=== PATIENT | female | born 1985 | race Caucasian/White ===

== ENCOUNTER 2016-05-24 09:40 | Emergency (ER) | payer OTHER ==
[2016-05-24 09:59] VITALS: TEMP 98; BMI 26.6
--- NOTE | 2016-05-24 10:32 | PDOC ---
History of Present Illness - General History Source: Patient Exam Limitations: No Limitations - History of Present Illness Initial Comments: 05/24/16 10:39 The patient is a 30 year old approximately 5 weeks female (), with a significant past medical history of asthma, who presents to the emergency department complaining of epigastric pain for approximately 5 days. The patient reports nausea and a bloody emetic episode earlier today. She reports everything she eats causes mild discomfort and associated heartburn. The patient denies any vaginal bleeding, cramping, dysuria, hematuria, frequency, or urgency. The patient reports morning sickness associated with her previous , but states todays symptoms are different. The patient states she has not seen her PRESCHOOL EDUCATION DIRECTOR for her current , but reports she has an appointment scheduled. The patient denies any diarrhea or constipation. The patient denies any fever, chills, cough, headache, or dizziness. The patient denies any chest pain, shortness of breath, palpitations, or diaphoresis. The patient denies any sick contacts or recent travel. Allergies: Penicillins(facial swelling) Past Surgical History: None reported. Social History: Non-smoker. Denies alcohol or drug use. <Eve Blackburn - Last Filed: 05/24/16 14:12> <Ariana Baeza - Last Filed: 05/25/16 08:44> - General Chief Complaint: Nausea/Vomiting Stated Complaint: 5 WKS , ABD PAIN, VOMITING Time Seen by Provider: 05/24/16 09:54 Past History <Eve Blackburn - Last Filed: 05/24/16 14:12> - Past Medical History Asthma: Yes Cancer: No Cardiac Disorders: No Diabetes: No HTN: No Seizures: No Thyroid Disease: No - Reproductive History Is Patient Now?: Yes (#): 2 Para: 1 Therapeutic (s) & number: No - Psycho/Social/Smoking Cessation Hx Suicidal Ideation: No Smoking History: Never smoked Have you smoked in the past 12 months: No Hx Alcohol Use: No Drug/Substance Use Hx: No Hx Substance Use Treatment: No <Ariana Baeza - Last Filed: 05/25/16 08:44> - Past Medical History Allergies/Adverse Reactions: Allergies Allergy/AdvReac Type Severity Reaction Status Date / Time Penicillins Allergy Severe Swelling Verified 05/24/16 09:59 Home Medications: Ambulatory Orders Vits #93/Iron Fum/FA [ Formula Tablet] 1 each PO DAILY Review of Systems - Review of Systems Able to Perform ROS?: Yes Comments:: 05/24/16 10:40 GENERAL/CONSTITUTIONAL: No fever or chills. No weakness. HEAD, EYES, EARS, NOSE AND THROAT: No change in vision. No ear pain or discharge. No sore throat. CARDIOVASCULAR: No chest pain or shortness of breath. RESPIRATORY: No cough, wheezing, or hemoptysis. GASTROINTESTINAL: +Epigastric pain, +nausea, +vomiting, +heart burn. No diarrhea or constipation. GENITOURINARY: No dysuria, frequency, or change in urination. MUSCULOSKELETAL: No joint or muscle swelling or pain. No neck or back pain. SKIN: No rash NEUROLOGIC: No headache, vertigo, loss of consciousness, or change in strength/ sensation. ENDOCRINE: No increased thirst. No abnormal weight change. HEMATOLOGIC/LYMPHATIC: No anemia, easy bleeding, or history of blood clots. ALLERGIC/IMMUNOLOGIC: No hives or skin allergy. <Eve Blackburn - Last Filed: 05/24/16 14:12> *Physical Exam - Vital Signs Last Vital Signs Temp Pulse Resp BP Pulse Ox 98.0 F 74 18 108/61 100 05/24/16 09:54 05/24/16 09:54 05/24/16 09:54 05/24/16 09:54 05/24/16 09:54 - Physical Exam Comments: 05/24/16 10:42 GENERAL: Awake, alert, and fully oriented, in no acute distress HEAD: No signs of trauma EYES: PERRLA, EOMI, sclera anicteric, conjunctiva clear ENT: Auricles normal inspection, hearing grossly normal, nares patent, oropharynx clear without exudates. Dry mucosa NECK: Normal ROM, supple, no lymphadenopathy, JVD, or masses LUNGS: Breath sounds equal, clear to auscultation bilaterally. No wheezes, and no crackles HEART: Regular rate and rhythm, normal S1 and S2, no murmurs, rubs or gallops ABDOMEN: Mild epigastric tenderness to palpation. Soft, normoactive bowel sounds. No guarding, no rebound. No masses EXTREMITIES: Normal range of motion, no edema. No clubbing or cyanosis. No cords, erythema, or tenderness NEUROLOGICAL: Cranial nerves II through XII grossly intact. Normal speech, normal gait SKIN: Warm, Dry, normal turgor, no rashes or lesions noted. <Eve Blackburn - Last Filed: 05/24/16 14:12> - Vital Signs Last Vital Signs Temp Pulse Resp BP Pulse Ox 98.0 F 74 18 108/61 100 05/24/16 09:54 05/24/16 09:54 05/24/16 09:54 05/24/16 09:54 05/24/16 09:54 <Ariana Baeza - Last Filed: 05/25/16 08:44> ED Treatment Course - LABORATORY CBC & Chemistry Diagram: 05/24/16 10:34 05/24/16 10:49 - RADIOLOGY Radiograph Interpretation: 05/24/16 14:11 EXAM: Pelvic US INTERPRETED BY: Dr. Perry REVIEWED BY: Dr. Baeza IMPRESSION: Single, live intrauterine of 5 weeks 5 days gestational age. <Eve Blackburn - Last Filed: 05/24/16 14:12> - LABORATORY CBC & Chemistry Diagram: 05/24/16 10:34 05/24/16 10:49 <Ariana Baeza - Last Filed: 05/25/16 08:44> Medical Decision Making - Medical Decision Making Initially was expecting very early which might not have shown up on ultrasound, however, when the B-HCG was ~30,000, ultrasound was obtained. +IUP. Patient feeling better with IV hydration and antiemetics. Stable for DC home. 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 I gave her a copy of the ultrasound reading and her bloodwork. <Ariana Baeza - Last Filed: 05/25/16 08:44> *DC/Admit/Observation/Transfer - Attestations Scribe Attestion: 05/24/16 10:42 Documentation prepared by Eve Blackburn, acting as special forces medical sergeant for Ariana Baeza MD. <Eve Blackburn - Last Filed: 05/24/16 14:12> - Discharge Dispostion Admit: No <Ariana Baeza - Last Filed: 05/25/16 08:44> Diagnosis at time of Disposition: Abdominal pain affecting - Discharge Dispostion Disposition: HOME Condition at time of disposition: Improved - Patient Instructions Printed Discharge Instructions: DI for -- Discomforts and Remedies, DI for Abdominal Pain -- Early
[2016-05-24] MEDS ORDERED: LACTATED RINGERS SOLUTION 1,000 ML IV STA (10:33)
[2016-05-24] MEDS ORDERED: ONDANSETRON 4 MG/2 ML VIAL IVPUSH ONE (10:33)
[2016-05-24] MEDS ORDERED: ONDANSETRON 4 MG/2 ML VIAL ONE (10:55)
[2016-05-24 11:00] LABS: BASOPHIL 0.6 % (0-2.0); EOSINOPHIL 0.6 % (0-4.5); MCH 29.3 pg (25.7-33.7); MCHC 33.6 g/dl (32.0-36.0); MEAN CELL VOLUME 87.3 fl (80-96); MEAN PLT VOLUME 8.9 fl (7.5-11.1); NEUTROPHILS 80.3 % (42.8-82.8); PLATELET COUNT 208 K/MM3 (134-434); RDW 12.6 % (11.6-15.6); WHITE BLOOD COUNT 8.4 K/mm3 (4.0-10.0)
[2016-05-24 11:03] LABS: URINE APPEARANCE CLEAR; URINE BILIRUBIN NEGATIVE (NEGATIVE); URINE BLOOD NEGATIVE (NEGATIVE); URINE COLOR COLORLESS; URINE GLUCOSE (UA) NEGATIVE (NEGATIVE); URINE KETONE NEGATIVE (NEGATIVE); URINE LEUK ESTERASE NEGATIVE (NEGATIVE); URINE NITRITE NEGATIVE (NEGATIVE); URINE PROTEIN NEGATIVE (NEGATIVE); URINE UROBILINOGEN NEGATIVE E.U./dl (0.2-1.0)
[2016-05-24 11:33] LABS: ALBUMIN 3.7 g/dl (3.4-5.0); ALK PHOS 47 U/L (45-117); ANION GAP 7 (8-16); BILIRUBIN,TOTAL 0.6 mg/dL (0.2-1.0); CALCIUM 9.1 mg/dL (8.5-10.1); CO2 27 mmol/L (21-32); CREATININE 0.6 mg/dL (0.55-1.02); GLUCOSE,RANDOM 101 mg/dL (74-106); SGOT/AST 11 U/L (15-37); SGPT/ALT 15 U/L (12-78); TOT PROT 6.6 g/dl (6.4-8.2)
[2016-05-24 14:14] VITALS: BP 110/62; PULSE 70
== END 2016-05-24 14:15 | disposition home or self-care (01) ==
LOC: JER 09:40
PROC: 3E0337Z Introduction of Electrolytic and Water Balance Substance into Peripheral Vein, Percutaneous Approach (ICD-10-PCS; principal; 2016-05-24)
PROC: 3E033GC Introduction of Other Therapeutic Substance into Peripheral Vein, Percutaneous Approach (ICD-10-PCS; 2016-05-24)
DX: O26.891 Other specified pregnancy related conditions, first trimester (principal); R10.13 Epigastric pain; Z3A.01 Less than 8 weeks gestation of pregnancy
CPT/HCPCS: 36415; 76801-TC; 80053; 81003; 83690; 84702; 85025; 99283-25

== ENCOUNTER 2017-01-14 14:00 | Inpatient (IN) | payer BC, OTHER ==
[2017-01-14 17:26] VITALS: BMI 35.2
[2017-01-14] MEDS ORDERED: DEXTROSE 5%-LACTATED RINGERS 1,000 ML IV SCH (18:00)
[2017-01-14 19:10] LABS: EOSINOPHIL 0.5 % (0-4.5); MCH 25.9 pg (25.7-33.7); MCHC 33.1 g/dl (32.0-36.0); MEAN CELL VOLUME 78.2 fl (80-96); MEAN PLT VOLUME 8.9 fl (7.5-11.1); NEUTROPHILS 84.5 % (42.8-82.8); PLATELET COUNT 223 K/MM3 (134-434); RDW 16.6 % (11.6-15.6)
[2017-01-14 19:24] LABS: INR 0.95 (0.82-1.09); PROTHROMBIN TIME (PATIENT) 10.7 SEC (9.98-11.88)
[2017-01-14 19:27] LABS: ACTIVATED PTT 26.1 SECONDS (26.9-34.4)
[2017-01-14 19:33] LABS: ANION GAP 10 (8-16); CALCIUM 8.7 mg/dL (8.5-10.1); CO2 23 mmol/L (21-32); CREATININE 0.6 mg/dL (0.55-1.02); GLUCOSE,RANDOM 128 mg/dL (74-106)
[2017-01-14 20:34] LABS: HIV 1 & 2 AB NEGATIVE; HIV 1 AGp24 NEGATIVE
--- NOTE | 2017-01-14 21:16 | HP ---
Past Medical History - Primary Care Physician PCP:: Rosemary Hays - Admission Chief Complaint: Active Labor History of Present Illness: 31 EDC 01/07/17 EGA 41 weeks admitted in active labor no Rom No bleeding History Source: Patient - Past Medical History Pulmonary: Yes: Asthma ...: 2 ...Para: 1 ...Term: 1 ...LMP: 04/14/16 ... Weeks Gestation by Dates: 39.2 ...EDC by Dates: 01/19/17 ...EDC by Sono: 01/07/17 - Past Surgical History Hx Myomectomy: No Hx Transabdominal Cerclage: No - Smoking History Smoking history: Never smoked Have you smoked in the past 12 months: No - Alcohol/Substance Use Hx Alcohol Use: No History of Substance Use: reports: None - Social History Usual Living Arrangement: Yes: With Spouse History of Recent Travel: No Home Medications - Allergies Allergies/Adverse Reactions: Allergies Allergy/AdvReac Type Severity Reaction Status Date / Time Penicillins Allergy Severe Swelling Verified 01/14/17 14:47 - Home Medications Home Medications: Ambulatory Orders Vits #93/Iron Fum/FA [ Formula Tablet] 1 each PO DAILY Review of Systems - Review of Systems Constitutional: reports: No Symptoms Eyes: reports: No Symptoms HENT: reports: No Symptoms Neck: reports: No Symptoms Cardiovascular: reports: No Symptoms Respiratory: reports: No Symptoms Gastrointestinal: reports: No Symptoms Genitourinary: reports: No Symptoms Breasts: reports: No Symptoms Reported Musculoskeletal: reports: No Symptoms Integumentary: reports: No Symptoms Neurological: reports: No Symptoms Endocrine: reports: No Symptoms Hematology/Lymphatic: reports: No Symptoms Psychiatric: reports: No Symptoms Physical Exam - Maternity Vital Signs: Vital Signs Temperature 97.8 F 01/14/17 18:00 Pulse Rate 83 01/14/17 20:00 Respiratory Rate 20 01/14/17 20:00 Blood Pressure 104/58 01/14/17 20:00 O2 Sat by Pulse Oximetry (%) Constitutional: Yes: Well Nourished, No Distress HENT: Yes: WNL Neck: Yes: WNL Cardiovascular: Yes: WNL, Regular Rate and Rhythm Lungs: Clear to auscultation Breast(s): Yes: WNL - Abdominal Exam/OB Fundal Height: 41 Number of Fetuses: Single Presentation: Vertex Contractions: Yes Regularity: Regular Intensity: Mild/Mod Monitor Mode: External Heart Rate (range): 145 Heart Rate Location: [facility] Category: I Accelerations: Non-Uniform Decelerations: None - Vaginal Exam/OB Dilatation (cm): 5 Effacement (%): 100 Amniotic Membrane Status: Intact Nitrazine Test: Negative Amniotic Fluid: Yes: Clear Presentation: Vertex/Position - Physical Exam Musculoskeletal: Yes: WNL Extremities: Yes: WNL Edema: No Integumentary: Yes: WNL - Labs Lab Results: CBC, BMP 01/14/17 18:45 01/14/17 18:45 Problem List - Problems (1) Labor established Code(s): DPY7209 - (2) Post-dates Code(s): O48.0 - POST-TERM Assessment/Plan Post dates 41 week labor Cat 1 Plan Stadol Prn pt does not desire pitocin
[2017-01-14] MEDS ORDERED: BUTORPHANOL TARTRATE 1 MG/ML VIAL IVPB ONE (21:56)
[2017-01-14] MEDS ORDERED: ELECTROLYTE-148 SOLN 1,000 ML IV SCH (22:30)
--- NOTE | 2017-01-15 01:21 | PN ---
Ante-Partal Exam - Subjective Subjective: Pt feeling tired Vital Signs: Vital Signs Temperature 98.2 F 01/14/17 22:00 Pulse Rate 82 01/14/17 23:00 Respiratory Rate 20 01/14/17 23:00 Blood Pressure 112/56 01/14/17 23:00 O2 Sat by Pulse Oximetry (%) Bleeding: No Headache: No Visual changes: No Right upper quadrant pain: No - Contractions Contractions: Yes Regularity: Irregular Intensity: Mild/Mod Monitor Mode: External - Exam during Labor Variability: Moderate Category: I Monitor Accelerations: Present Monitor Decelerations: None Exam: Vaginal Dilatation (cm): 6 Effacement (%): 100 Amniotic Membrane Status: Intact Presentation: Vertex Station: -1 - Assessment/Plan Assessment/Plan: Active labor Plan continue present management advised lovely hamiltonn
[2017-01-15] MEDS ORDERED: PROMETHAZINE HCL 25 MG/1 ML VIAL IM ONE (02:29)
--- NOTE | 2017-01-15 07:28 | PN ---
Ante-Partal Exam - Subjective Subjective: Pt with pressure Vital Signs: Vital Signs Temperature 98.3 F 01/15/17 05:00 Pulse Rate 106 H 01/15/17 05:00 Respiratory Rate 18 01/15/17 05:00 Blood Pressure 95/63 01/15/17 05:00 O2 Sat by Pulse Oximetry (%) Bleeding: No Headache: No Visual changes: No Right upper quadrant pain: No - Contractions Contractions: Yes Regularity: Irregular Intensity: Mild/Mod Monitor Mode: External - Exam during Labor Heart Rate: 145 Variability: Moderate Heart Rate Location: [facility] Category: I Monitor Accelerations: Present Monitor Decelerations: None Exam: Vaginal Dilatation (cm): 7 Effacement (%): 100 Amniotic Membrane Status: Intact Presentation: Vertex - Intrapartum Hemorrhage Risk Risk Score: 0 Risk Level: Low Risk - Assessment/Plan Assessment/Plan: Active Labor - slow progress Cat 1 desires no pitocin SP Stadol Plan Continue current management
[2017-01-15] MEDS ORDERED: ACETAMINOPHEN 325 MG TABLET (FP) PO PRN (10:08)
[2017-01-15] MEDS ORDERED: BUTORPHANOL TARTRATE 1 MG/ML VIAL IVPUSH ONE (10:28)
[2017-01-15] MEDS ORDERED: PROMETHAZINE HCL 25 MG/1 ML VIAL IVPUSH ONE (10:29)
--- NOTE | 2017-01-15 10:31 | PN ---
Ante-Partal Exam - Subjective Subjective: Pt c/o pain, desires more IV analgesia. Vital Signs: Vital Signs Temperature 98.0 F 01/15/17 10:00 Pulse Rate 71 01/15/17 10:00 Respiratory Rate 20 01/15/17 10:00 Blood Pressure 111/66 01/15/17 10:00 O2 Sat by Pulse Oximetry (%) Bleeding: No Headache: No Visual changes: No Right upper quadrant pain: No Pain (scale 1-10): 8 - Contractions Contractions: Yes Regularity: Regular Intensity: Mod/Strong Monitor Mode: External - Exam during Labor Heart Rate: 145 Variability: Moderate Category: I Monitor Accelerations: Present Monitor Decelerations: None Exam: Vaginal Dilatation (cm): 7.5 Effacement (%): 100 Amniotic Membrane Status: Ruptured Amniotic Fluid: Clear Station: 0 - Assessment/Plan Assessment/Plan: Artifical ROM for copious clear fluid for another dose of IV stadol/phenergan expectant management anticipate
[2017-01-15] MEDS: OXYTOCIN 20 UNITS in 0.9% NS 1,000 ML IV SCH ×2 (14:00→15:15)
--- NOTE | 2017-01-15 14:14 | PN ---
Delivery - Delivery Vaginal Delivery: No Problems Type of Anesthesia: Local Episiotomy/Laceration: 2nd degree EBL (cc): 300 Delivery, Single - Stages of Labor Date of Delivery: 01/15/17 Time of Delivery: 13:51 Date Placenta Delivered: 01/15/17 Time Placenta Delivered: 14:00 Placenta: Yes: Spontaneous - Condition of Infant Infant Gender: Male Position: Left, OA - 1 Minute Total Score: 9 5 Minutes Total Score: 9 - Feeding Plan Initial Plan: Exclusive throughout hospitalization Remarks - Remarks Remarks: Uncomplicated from LESIA position. Anterior shoulder (right) delivered with ease along with remainder of . cord clamped and cut nose and oropharynx bulb suctioned cord blood collected 2nd degree laceration repaired with 2-0 chromic suture in usual fashion placenta delivered spontaneously and in tact mom stable baby to well baby nursery
[2017-01-15] MEDS ORDERED: WITCH HAZEL 50% (TUCKS) 40 PAD/JAR PAD TP PRN (14:15)
[2017-01-15] MEDS ORDERED: METHYLERGONOVINE MALEATE 0.2 MG/1 ML AMP IM PRN (14:15)
[2017-01-15] MEDS ORDERED: BENZOCAINE 28 GM HEMORRHOIDAL OINTMENT TP PRN (14:15)
[2017-01-15] MEDS ORDERED: BENZOCAINE 20% 57 GM BOTTLE TP PRN (14:15)
[2017-01-15] MEDS ORDERED: BISACODYL 10 MG SUPP.RECT RC PRN (14:15)
[2017-01-15] MEDS ORDERED: TUBERCULIN PPD 5 TU/0.1ML SYRINGE (IN PATIENT USE ONLY) ID ONE (16:30)
[2017-01-15] MEDS: FERROUS SO4 325 MG TABLET (FP) PO SCH (18:05)
[2017-01-15] MEDS: ACETAMINOPHEN 325 MG TABLET (FP) PO PRN (21:25)
[2017-01-15] MEDS: IBUPROFEN 600 MG TABLET (FP) PO PRN (21:25)
--- NOTE | 2017-01-16 07:39 | PN ---
Post Progress Note - Subjective Subjective: Pt seen/examined and feeling well. today. Some perineal soreness otherwise feeling well. Pain controlled, tolerating diet. Ambulating and voiding. Type of Delivery: Vital Signs: Vital Signs Temperature 97.9 F 01/16/17 06:00 Pulse Rate 73 01/16/17 06:00 Respiratory Rate 18 01/16/17 06:00 Blood Pressure 111/63 01/16/17 06:00 O2 Sat by Pulse Oximetry (%) Uterus: Yes: Fundus below umbilicus Abdomen/GI: Yes: Abdomen soft, Passing flatus, Tolerating PO. No: Tender Lochia: Yes: Rubra Lochia, amount: Small Extremities: Yes: Calves non-tender. No: Edema Perineum: Yes: Laceration (2nd degree reparied with 2-0 vicryl) Activity: Ambulating - Labs Labs: CBC WBC 10.0 K/mm3 (4.0-10.0) 01/14/17 18:45 RBC 4.42 M/mm3 (3.60-5.2) 01/14/17 18:45 Hgb 11.4 GM/dL (10.7-15.3) D 01/14/17 18:45 Hct 34.6 % (32.4-45.2) 01/14/17 18:45 MCV 78.2 fl (80-96) L 01/14/17 18:45 MCH 25.9 pg (25.7-33.7) D 01/14/17 18:45 MCHC 33.1 g/dl (32.0-36.0) 01/14/17 18:45 RDW 16.6 % (11.6-15.6) H D 01/14/17 18:45 Plt Count 223 K/MM3 (134-434) 01/14/17 18:45 MPV 8.9 fl (7.5-11.1) 01/14/17 18:45 Neutrophils % 84.5 % (42.8-82.8) H 01/14/17 18:45 Lymphocytes % 9.9 % (8-40) D 01/14/17 18:45 Monocytes % 4.1 % (3.8-10.2) 01/14/17 18:45 Eosinophils % 0.5 % (0-4.5) 01/14/17 18:45 Basophils % 1.0 % (0-2.0) 01/14/17 18:45 Problem List - Problems (1) Vaginal delivery Code(s): O80 - ENCOUNTER FOR FULL-TERM UNCOMPLICATED DELIVERY Assessment/Plan 31 y/o PPD#1 s/p normal - AFVSS - CBC pending this a.m - regular diet, PO pain meds - routine care
[2017-01-16 08:58] LABS: BASOPHIL 0.5 % (0-2.0); EOSINOPHIL 0.5 % (0-4.5); MCH 25.3 pg (25.7-33.7); MCHC 32.2 g/dl (32.0-36.0); MEAN CELL VOLUME 78.4 fl (80-96); MEAN PLT VOLUME 8.6 fl (7.5-11.1); NEUTROPHILS 77.8 % (42.8-82.8); PLATELET COUNT 192 K/MM3 (134-434); RDW 16.5 % (11.6-15.6); WHITE BLOOD COUNT 11.6 K/mm3 (4.0-10.0)
[2017-01-16] MEDS: PRENATAL VITAMINS W/ FOLIC ACID TABLET (FP) PO SCH (09:17)
[2017-01-16] MEDS: FERROUS SO4 325 MG TABLET (FP) PO SCH ×3 (09:18→17:16)
[2017-01-16] MEDS: IBUPROFEN 600 MG TABLET (FP) PO PRN (09:20)
[2017-01-16] MEDS: ACETAMINOPHEN 325 MG TABLET (FP) PO PRN (09:21)
[2017-01-16] MEDS ORDERED: SENNOSIDES/DOCUSATE COMBO (SENNA PLUS) TABLET (UD) PO PRN (22:00)
[2017-01-17] MEDS: PRENATAL VITAMINS W/ FOLIC ACID TABLET (FP) PO SCH (10:00)
[2017-01-17] MEDS: FERROUS SO4 325 MG TABLET (FP) PO SCH ×2 (10:00→12:00)
[2017-01-17 11:07] VITALS: BP 118/64; PULSE 88; TEMP 98.4
--- NOTE | 2017-01-18 09:39 | DS ---
Physical Exam-[employer]AB[employer] Vital Signs: Vital Signs Temperature 98.4 F 01/17/17 10:00 Pulse Rate 88 01/17/17 10:00 Respiratory Rate 20 01/17/17 10:00 Blood Pressure 118/64 01/17/17 10:00 O2 Sat by Pulse Oximetry (%) Constitutional: Yes: Well Nourished, No Distress, Calm Eyes: Yes: Conjunctiva Clear, EOM Intact HENT: Yes: Atraumatic, Normocephalic Neck: Yes: Supple, Trachea Midline Cardiovascular: Yes: Regular Rate and Rhythm Respiratory: Yes: Regular, CTA Bilaterally Gastrointestinal: Yes: Normal Bowel Sounds, Soft ....Post : Yes: Uterus firm, Uterus non-tender Wound/Incision: Yes: Clean/Dry, Well Approximated Neurological: Yes: Alert, Oriented Psychiatric: Yes: Alert, Oriented Labs: CBC, BMP 01/16/17 08:00 01/14/17 18:45 Delivery - Delivery Vaginal Delivery: No Problems Type of Anesthesia: Local Episiotomy/Laceration: Perineal Extension/lac, 2nd degree EBL (cc): 300 Delivery, Single - Stages of Labor Date 1st Stage Initiatied: 01/14/17 Time 1st Stage Initiated: 10:00 Date 2nd Stage Initiated: 01/14/17 Time 2nd Stage Initiated: 13:00 Date of Delivery: 01/15/17 Time of Delivery: 13:51 Time Placenta Delivered: 14:00 Placenta: Yes: Spontaneous - Condition of Mammal Keeper/Solar Thermal Technician Present: No Infant Gender: Male Weight: 9 lb 11 oz Position: Left, OA Total Hours ROM (Hrs/Mins): 3/40 - 1 Minute Total Score: 9 5 Minutes Total Score: 9 - Feeding Plan Initial Plan: Exclusive throughout hospitalization Discharge Summary Reason For Visit: LABOR Procedures: Principal: Normal Hospital Course: Patient admitted in labor, and on hospital day 2 underwent an uncomplicated normal . The patient underwent a normal post recovery and was discharged home in stable condition on post day 2. Condition: Good - Instructions Diet, Activity, Other Instructions: Physical activity Resume your normal everyday activity as tolerated no heavy lifting or exercise until seen by your doctor. You may walk unlimited john of and climb stairs. You may resume driving the car when you feel safe and comfortable behind the wheel. No sexual activity as instructed for 6 weeks. You may shower, do not soak in tubs/baths/pools for 6 weeks. Diet There are no dietary restrictions. Eat healthy, high-fiber foods. Drink 6 to 8 glasses of liquid each day. This will assist in keeping your bowels regular. Pain management You may take Tylenol or Ibuprofen (for example, Motrin, Advil etc.) as needed for pain. Call MD for any of the following: Severe pain not relieved by medication Fever of 101 or higher Excessive bleeding or drainage on dressing Inability to urinate Disposition: HOME - Home Medications Comprehensive Discharge Medication List: Ambulatory Orders Vits #93/Iron Fum/FA [ Formula Tablet] 1 each PO DAILY Ibuprofen [Motrin -] 600 mg PO QID PRN #28 tablet 01/17/17
== END 2017-01-17 13:55 | disposition home or self-care (01) | DRG 775 ==
LOC: JDEL 14:00 → JLDR 17:00 → J3W 01-15 16:31
PROVIDERS: ADMIT Obstetrics & Gynecology; ATTEND Obstetrics & Gynecology
PROC: 10E0XZZ Delivery of Products of Conception, External Approach (ICD-10-PCS; principal; 2017-01-15)
DX: O48.0 Post-term pregnancy (principal); O70.1 Second degree perineal laceration during delivery; O26.893 Other specified pregnancy related conditions, third trimester; J45.909 Unspecified asthma, uncomplicated; Z3A.40 40 weeks gestation of pregnancy; Z37.0 Single live birth
CPT/HCPCS: 36415; 59409; 80048; 85025; 85610; 85730; 86593; 86850; 86900; 86901; 87389